=== PATIENT | female | born 1970 | race Caucasian/White ===

== ENCOUNTER 2025-03-07 12:36 | Outpatient (AMB) | payer MEDICAID, SELFPAY ==
[2025-03-07 12:49] VITALS: BP 114/68; PULSE 69; RESP 19; TEMP 36.4; O2SAT 98; BMI 32.7
--- NOTE | 2025-03-07 12:49 | ORTHONT_ITS ---
Vital signs 03/07/25 12:49 Height 1.5 m Height Method Stated Weight 73.539 kg Weight Measurement Method Standing Scale BMI 32.7 BP 114/68 Blood Pressure Source Automatic Cuff Blood Pressure Location Left Upper Arm Position Sitting Respiration 19 Pulse 69 Pulse Source Monitor Temp 97.6 F Temp Source Temporal Artery Scan Pulse Oximetry (%) 98 Oxygen Delivery Method Room Air Med/Allergies Allergies & Medications Allergies No Known Allergies Allergy (Verified 03/07/25 12:50) Medication Reconciliation Unobtainable 03/07/25 [History Confirmed 03/07/25] Exam Exam Patient is in no acute distress and is cooperative with the examination today. Breathing is nonlabored. In no respiratory distress. Patient has no paraspinal tenderness. Spinal deformity cannot be appreciated. The gait of the patient is nonantalgic Bilateral extremities were evaluated and demonstrates sensation intact to light touch. Palpable pedal pulses are present. No significant edema is present. Bilateral knees were examined and the patient has full strength and range of motion.. The left hip was examined. Patient was able to flex to 90 degrees, adduct to 30 degrees, abduct to 40 degrees, internally rotate to 20 degrees, and externally rotate to 20 degrees. Patient has a negative logroll. Stinchfield is negative. The patient is nontender diffusely to touch. The right hip was examined. Patient was able to flex to 90 degrees, adduct to 30 degrees, abduct to 40 degrees, internally rotate to 20 degrees, and externally rotate to 20 degrees. Patient has a negative logroll. The stinchfield is negative. Right knee is tender to palpation medially. Range of motion 0 to 120 degrees. Knee feels stable varus valgus stresses AP translation Patient has an MRI for women's health. It is limited by metal artifact. I do not see anything obviously wrong with the right hip. For the right knee there are meniscal tears as well as arthritis degenerative changes of the right knee Assessment and Plan Problem List (1) Acute pain of right hip: Status: Acute Plan: Patient is a pleasant 54-year-old female with Right hip and knee pain that has been ongoing for quite a while. She had a prior hip replacement 2019. The pain starts in the back and radiates down her knee. The MRI demonstrates a large bucket-handle tear of the lateral meniscus with a flipped meniscal fragment. I would like to see x-rays to see the severity of the arthritis. We discussed we could try cortisone injections if needed. We will see her back after her x-rays are done. I discussed with her that the treatment would likely depend on the severity of the arthritis.. 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 Level 3 (5640-0141) [place] Intake Visit Data Collection New Patient or Established: New Patient (never been to [facility]) Reason for Visit:: RIGHT HIP/KNEE PAIN [employer] Required: No Do You Feel Safe at Home: Yes Questionairres Past Medical History Past Medical History Have you ever been diagnosed with any of the following: Cardiology Problems Hypertension: No Respiratory Problems Smoking: No Smoking Exposure: No Surgical History Bariatric Surgery: Yes Cholecystectomy: Yes Total Hip Replacement: Yes (RIGHT) Subjective Visit Visit for: new patient, hip and knee Immunization / Flu Flu Vaccine in the Last 12 Months: No Flu Vaccine Exclusion Criteria: No Exclusion Criteria History of Present Illness Chief complaint: RIGHT HIP/KNEE PAIN Patient is a pleasant 54-year-old female with pain that starts from her back and radiates all the way down her leg. There is also hip and knee pain. She had a hip replacement done in 2019. The pain is described as a burning sensation. She reports the knees have been bad for quite a while. Personal History Red flag PMH: none BMI Counceling provided: Yes Pain Pain location: inside (medial), outside (lateral), anterior and posterior Pain quality: sharp, aching and burning Associated signs & symptoms: stiffness Ambulatory data Ambulatory device: other (specify) (CRUTCH) Treatments Improvement with previous injections: No Improvement with PT: No Improvement with NSAIDS: yes Review of Systems Review of Systems: All systems negative unless otherwise noted in HPI.
--- NOTE | 2025-03-07 12:55 | XR_ITS ---
Examination: Right knee 4 views Technique one AP oblique lateral axial right knee 4 views Exam date and time: March 07, 2025 1306 hours Indications knee pain years. FINDINGS: Moderate to advanced tricompartment osteoarthritis, most severe narrowing lateral joint space No patellar dislocation No fracture IMPRESSION: Moderate to advanced tricompartment osteoarthritis
--- NOTE | 2025-03-07 12:55 | XR_ITS ---
Examination:Right hip AP, lateral, AP pelvis 3 views Technique: Hip AP lateral, AP pelvis, 3 views Exam date and time:March 07, 2025 1304 hours INDICATIONS: History right hip replacement FINDINGS: Total right hip arthroplasty. Satisfactory alignment. No fracture. No loosening of the prosthetic components Left hip intact IMPRESSION: Total right hip arthroplasty with satisfactory alignment.
== END 2025-03-07 12:59 | disposition home or self-care (01) ==
LOC: HODSRG 12:36
PROVIDERS: Supervising Provider Orthopaedic Surgery Adult Reconstructive Orthopaedic Surgery; Visit Provider Orthopaedic Surgery Adult Reconstructive Orthopaedic Surgery
DX: M25.551 Pain in right hip (principal); M25.561 Pain in right knee
CPT/HCPCS: 73502; 73564; 99203; G0463

== ENCOUNTER 2025-03-15 13:32 | Outpatient (AMB) | payer MEDICAID, SELFPAY ==
--- NOTE | 2025-03-15 13:49 | PD.ORTHCLVIS ---
Vital signs 03/15/25 13:50 Height 1.5 m Height Method Stated Weight 73.057 kg Weight Measurement Method Standing Scale BMI 32.4 BP 128/69 Blood Pressure Source Automatic Cuff Blood Pressure Location Left Upper Arm Position Sitting Respiration 19 Pulse 63 Pulse Source Monitor Temp 97.3 F Temp Source Temporal Artery Scan Pulse Oximetry (%) 97 Oxygen Delivery Method Room Air Med/Allergies Allergies & Medications Allergies No Known Allergies Allergy (Verified 03/15/25 13:50) Medication Reconciliation dexamethasone 4 mg tablet 4 mg PO QDAY 03/15/25 [History Confirmed 03/15/25] Exam Exam Patient is in no acute distress and is cooperative with the examination today. Breathing is nonlabored. In no respiratory distress. Patient has no paraspinal tenderness. Spinal deformity cannot be appreciated. The gait of the patient is nonantalgic Bilateral extremities were evaluated and demonstrates sensation intact to light touch. Palpable pedal pulses are present. No significant edema is present. Bilateral knees were examined and the patient has full strength and range of motion.. The left hip was examined. Patient was able to flex to 90 degrees, adduct to 30 degrees, abduct to 40 degrees, internally rotate to 20 degrees, and externally rotate to 20 degrees. Patient has a negative logroll. Stinchfield is negative. The patient is nontender diffusely to touch. The right hip was examined. Patient was able to flex to 90 degrees, adduct to 30 degrees, abduct to 40 degrees, internally rotate to 20 degrees, and externally rotate to 20 degrees. Patient has a negative logroll. The stinchfield is negative. Right knee is tender to palpation medially. Range of motion 0 to 120 degrees. Knee feels stable varus valgus stresses AP translation Patient has an MRI for women's health. It is limited by metal artifact. I do not see anything obviously wrong with the right hip. For the right knee there are meniscal tears as well as arthritis degenerative changes of the right knee X-rays of the right knee demonstrate severe joint space narrowing laterally with [id number] arthritis Assessment and Plan Problem List (1) Acute pain of right hip: Status: Acute Plan: Patient is a pleasant 54-year-old female with Right hip and knee pain that has been ongoing for quite a while. She had a prior hip replacement 2019. The pain starts in the back and radiates down her knee. The MRI demonstrates a large bucket-handle tear of the lateral meniscus with a flipped meniscal fragment. X-rays demonstrate severe lateral joint space narrowing and arthritis Recommend knee cortisone injection as patient would like to proceed with conservative treatment at this time. The risks and benefits of the procedure were reviewed with the patient and patient gave verbal consent to continue with the procedure. Procedure: performed by Dr. Burns Using sterile technique the Right knee was thoroughly prepped with alcohol, and approximately 1 cc of Kenalog 40 mg/mL and 4 cc of 1% lidocaine was injected without resistance into the medial tibial femoral joint space. The patient tolerated the procedure. (2) Pain in right knee: Status: Acute Office Procedures GNS Level of Care Nursing/Assessment Patient Status: Established Patient Nursing Assessment/Reassesment: Medication Reconciliation, Update PMH in EMR and Vital Signs Coordination of Care: Complex Care and Chronic Disease 1-5, Education Complex Pt/Fam, Consent,records obtained, informed consent, Results/Orders obtained and Staff clarify orders Special Needs: Language special needs Established Patient Charge Established Patient Point Assignment: 95 Established Patient Point Charge: EP Level 3 (80-115) [place] Intake Visit Data Collection New Patient or Established: Established Patient (seen at [facility] within 3 years) Reason for Visit:: XRAY RESULTS/RIGHT HIP PAIN Seen by Clinical Staff ONLY (RN/MA): No PCP or OBGYN visit in last 3 months: Yes Hx Now: No Do You Feel Safe at Home: Yes Authorities Contacted: N/A Questionairres Past Medical History Past Medical History Have you ever been diagnosed with any of the following: Cardiology Problems Hypertension: No Respiratory Problems Smoking: No Smoking Exposure: No Surgical History Bariatric Surgery: Yes Cholecystectomy: Yes Total Hip Replacement: Yes (RIGHT) Subjective Visit Visit for: follow up visit, hip and x-rays Immunization / Flu Flu Vaccine in the Last 12 Months: No Flu Vaccine Exclusion Criteria: No Exclusion Criteria History of Present Illness Chief complaint: RIGHT HIP/KNEE PAIN Patient is a pleasant 54-year-old female with pain that starts from her back and radiates all the way down her leg. There is also hip and knee pain. She had a hip replacement done in 2019. The pain is described as a burning sensation. She reports the knees have been bad for quite a while. She reports the knee hurts more than the hip. She is post to get back and cervical spine surgery soon. She wants cortisone injection to the right knee today Personal History Red flag PMH: none BMI Counceling provided: Yes Pain Pain level (0-10): 0 Pain location: inside (medial), outside (lateral), anterior and posterior Pain quality: sharp, aching and burning Associated signs & symptoms: stiffness Ambulatory data Ambulatory device: none Treatments Improvement with previous injections: No Improvement with PT: No Improvement with NSAIDS: no Review of Systems Review of Systems: All systems negative unless otherwise noted in HPI.
[2025-03-15 13:50] VITALS: BP 128/69; PULSE 63; RESP 19; TEMP 36.3; O2SAT 97; BMI 32.4
== END 2025-03-15 14:01 | disposition home or self-care (01) ==
LOC: HODSRG 13:32
PROVIDERS: Supervising Provider Orthopaedic Surgery Adult Reconstructive Orthopaedic Surgery; Visit Provider Orthopaedic Surgery Adult Reconstructive Orthopaedic Surgery
DX: M17.11 Unilateral primary osteoarthritis, right knee (principal); S83.251A Bucket-handle tear of lateral meniscus, current injury, right knee, initial encounter; M25.551 Pain in right hip; X58.XXXA Exposure to other specified factors, initial encounter; Z90.49 Acquired absence of other specified parts of digestive tract; Z96.649 Presence of unspecified artificial hip joint
CPT/HCPCS: 20610; 99213; J3301; J3490; G0463

== ENCOUNTER 2025-06-14 13:13 | Outpatient (AMB) | payer MEDICAID, SELFPAY ==
--- NOTE | 2025-06-14 13:21 | ORTHONT_ITS ---
Vital signs 06/14/25 13:24 Height 1.5 m Height Method Stated Weight 72.263 kg Weight Measurement Method Standing Scale BMI 32.1 BP 106/75 Blood Pressure Source Automatic Cuff Blood Pressure Location Left Upper Arm Position Sitting Respiration 16 Pulse 66 Pulse Source Monitor Temp 98.4 F Temp Source Temporal Artery Scan Pulse Oximetry (%) 99 Oxygen Delivery Method Room Air Med/Allergies Allergies & Medications Allergies No Known Allergies Allergy (Verified 06/14/25 13:25) Medication Reconciliation dexamethasone 4 mg tablet 4 mg PO QDAY 03/15/25 [History Confirmed 06/14/25] Exam Exam Patient is in no acute distress and is cooperative with the examination today. Breathing is nonlabored. In no respiratory distress. Patient has no paraspinal tenderness. Spinal deformity cannot be appreciated. The gait of the patient is nonantalgic Bilateral extremities were evaluated and demonstrates sensation intact to light touch. Palpable pedal pulses are present. No significant edema is present. Bilateral knees were examined and the patient has full strength and range of motion.. The left hip was examined. Patient was able to flex to 90 degrees, adduct to 30 degrees, abduct to 40 degrees, internally rotate to 20 degrees, and externally rotate to 20 degrees. Patient has a negative logroll. Stinchfield is negative. The patient is nontender diffusely to touch. The right hip was examined. Patient was able to flex to 90 degrees, adduct to 30 degrees, abduct to 40 degrees, internally rotate to 20 degrees, and externally rotate to 20 degrees. Patient has a negative logroll. The stinchfield is negative. Right knee is tender to palpation medially. Range of motion 0 to 120 degrees. Knee feels stable varus valgus stresses AP translation Patient has an MRI for women's health. It is limited by metal artifact. I do not see anything obviously wrong with the right hip. For the right knee there are meniscal tears as well as arthritis degenerative changes of the right knee X-rays of the right knee demonstrate severe joint space narrowing laterally with [id number] arthritis Assessment and Plan Problem List (1) Acute pain of right hip: Status: Acute Plan: Patient is a pleasant 54-year-old female with Right hip and knee pain that has been ongoing for quite a while. She had a prior hip replacement 2019. The pain starts in the back and radiates down her knee. The MRI demonstrates a large bucket-handle tear of the lateral meniscus with a flipped meniscal fragment. X- rays demonstrate severe lateral joint space narrowing and arthritis She is doing well currently we recommend continued home exercises. We can give her a cortisone injection should the pain get worse (2) Pain in right knee: Status: Acute Office Procedures GNS Level of Care Nursing/Assessment Patient Status: Established Patient Nursing Assessment/Reassesment: Medication Reconciliation, Update PMH in EMR and Vital Signs Coordination of Care: Complex Care and Chronic Disease 1-5, Education Complex Pt/Fam, Consent,records obtained, informed consent, Results/Orders obtained and Staff clarify orders Established Patient Charge Established Patient Point Assignment: 95 Established Patient Point Charge: EP Level 3 (80-115) [place] Intake Visit Data Collection New Patient or Established: Established Patient (seen at [facility] within 3 years) Reason for Visit:: 3 MONTH F/U KNEE INJECTION Seen by Clinical Staff ONLY (RN/MA): No Horticultural Technical Officer Required: No PCP or OBGYN visit in last 3 months: Yes Hx Now: No Do You Feel Safe at Home: Yes Authorities Contacted: N/A Questionairres Past Medical History Past Medical History Have you ever been diagnosed with any of the following: Neurological Problems Cerebrovascular Accident (CVA): No Transient Ischemic Attacks (TIA): No Dementia: No Alzheimer's Disease: No Parkinson's Disease: No Brain Tumor: No Meningitis: No Seizures: No Epilepsy: No Multiple Sclerosis: No Cerebral Palsy: No Amyotrophic Lateral Sclerosis (ALS/Jacinda Gehrig's): No Guillain-Castle[place] Syndrome: No Spina Bifida: No Paralysis: No Peripheral Neuropathy: No Crews's Palsy: No Subdural Hematoma: No Migraine: No Head Trauma: No Spinal Cord Injury: No Traumatic Brain Injury: No Cardiology Problems Myocardial Infarction: No Cardiac Arrhythmia: No Atrial Fibrillation: No Angina: No Heart Murmur: No Coronary Artery Disease: No Atherosclerotic Heart Disease: No Peripheral Vascular Disease: No Hypercholesterolemia: No Aneurysm: No Congestive Heart Failure: No Congenital Heart Disease: No Valvular Heart Disease: No Rheumatic Fever: No Cardiomyopathy: No Edema: No Pericarditis: No Cellulitis: No Deep Vein Thrombosis: No Hypertension: No Hypotension: No Varicose Veins: No Respiratory Problems Chronic Obstructive Pulmonary Disease (COPD): No Asthma: No Bronchitis: No Emphysema: No Pneumonia: No Pulmonary Fibrosis: No Tuberculosis: No Pulmonary Embolism: No Pulmonary Edema: No Sleep Apnea: No CPAP Dependent: No Respiratory Aspiration: No Dyspnea: No Orthopnea: No Hx Cough: No Cough: No Wheezing: No Chest Deformities: No Smoking: No Smoking Cessation Counseling: No Smoking Exposure: No Tobacco Use: No Clubbing: No Exposure to Respiratory Irritants: No Intubation: No Stomache/Intestinal Problems Liver Cancer: No Hepatitis: No Cirrhosis: No Pancreatic Cancer: No Pancreatitis: No Celiac Disease: No Gall Bladder Disease: No Gastrointestinal Bleed: No Esophageal Varices: No Patterson's Esophagus: No Colitis: No Ulcerative Colitis: No Diverticulitis: No Diverticulosis: No Ulcer: No Colorectal Cancer: No Irritable Bowel: No Crohn's Disease: No Obstructive Bowel: No Hiatal Hernia: No Hemorrhoids: No Gastroesophageal Reflux Disease: No Polyps: No Obesity: No Genital/Urinary Problems Chronic Kidney Disease: No Renal Disease: No Kidney Stones: No Polycystic Kidney Disease: No Neurogenic Bladder: No Inguinal Hernia: No Dialysis: No Reproductive Problems Breast Cancer: No Endometriosis: No Fibroids: No Genital Herpes: No Gonorrhea: No Pelvic Inflammatory Disease: No Polycystic Ovarian Syndrome: No Previous Pregnancies: No Syphilis: No Uterine Prolapse: No Musculoskeletal Problems Muscular Dystrophy: No Myasthenia Gravis: No Marfan's Syndrome: No Bone Cancer: No Arthritis: No Rheumatoid Arthritis: No Osteoporosis: No Degenerative Disk Disease: No Gout: No Scoliosis: No Carpal Tunnel Syndrome: No Fibromyalgia: No Fractures: No Degenerative Joint Disease: No Osteomyelitis: No Poliovirus: No Head,Eye,Nose,Throat Problems Cataracts: No Glaucoma: No Blind: No Retinal Detachment: No Macular Degeneration: No Chronic Ear Infections: No Deafness: No Eye Prosthesis: No Endocrine Problems Diabetes Mellitus Type 1: No Diabetes Mellitus Type 2: No Hypoglycemia: No Michael's Syndrome: No Jensen's Disease: No Hyperthyroidism: No Hypothyroidism: No Thyroid Cancer: No Parathyroid Disease: No Pituitary Disease: No Systemic Lupus Erythematosus: No Syndrome of Inappropriate Antidiuretic Hormone: No Adrenal Disease: No Graves' Disease: No Blood Problems Anemia: No Leukemia: No Hemophilia: No Thalassemia: No Sickle Cell Disease: No Clotting Problems: No Psychologic Problems Schizophrenia: No Recreational Drug Use: No Bipolar Disorder: No Depression: No Anxiety: No Behavior Problems: No Self-Mutilation: No Attention Deficit Disorder: No Attention Deficit Hyperactivity Disorder: No Depression: No Post Traumatic Stress Disorder: No Eating Disorder: No Other Problems Hospitalization: No Autoimmune Disease: No Down Syndrome: No Autism: No Developmental Delay: No Cosmetic Surgery: No Shingles: No Falls: No Blood Transfusions: No Blood Transfusion Reaction: No Anesthesia Reactions: No Organ Transplant: No Chemotherapy: No Radiation Therapy: No Hyperbaric Therapy: No MRSA: No VRSA: No Vancomycin-Resistant Enterococci: No Human Immunodeficiency Virus (HIV): No Chicken Pox: No Measles: No Mumps: No Rubella ([place] Measles): No Pertussis: No Klebsiella Pneumoniae Carbapenemase Producing Bacteria: No Clostridium Difficile: No Hepatitis A: No Hepatitis B: No Hepatitis C: No Communicable Disease: No Cancer: No Cervical Cancer: No Lung Cancer: No Ovarian Cancer: No Surgical History Angioplasty: No Appendectomy: No Bariatric Surgery: Yes Breast Surgery: No Cancer Surgery: No Carotid Endarterectomy: No Cholecystectomy: Yes Colectomy: No Colostomy: No Coronary Artery Bypass Graft: No Valve Replacement: No Herniorrhaphy: No Total Hip Replacement: Yes (RIGHT) Total Knee Replacement: No Hysterectomy: No Pacemaker: No Sinus Surgery: No Splenectomy: No TAHBSO-Total Abdominal Hysterectomy: No Thyroidectomy: No Ureter Stent: No Subjective Visit Visit for: follow up visit and knee Immunization / Flu Flu Vaccine in the Last 12 Months: No Flu Vaccine Exclusion Criteria: No Exclusion Criteria History of Present Illness Chief complaint: 3 MTH F/U KNEE INJECTION Patient is a pleasant 54-year-old female with pain that starts from her back and radiates all the way down her leg. There is also hip and knee pain. She had a hip replacement done in 2019. The pain is described as a burning sensation. She reports the knees have been bad for quite a while. She reports the knee hurts more than the hip. Personal History Red flag PMH: none BMI Counceling provided: Yes Pain Pain level (0-10): 0 Pain location: inside (medial), outside (lateral), anterior and posterior Pain quality: sharp, aching and burning Associated signs & symptoms: weakness Ambulatory data Ambulatory device: none Treatments Number of previous injections: 1 Improvement with previous injections: Yes Improvement with PT: No Improvement with NSAIDS: yes Review of Systems Review of Systems: All systems negative unless otherwise noted in HPI.
[2025-06-14 13:24] VITALS: BP 106/75; PULSE 66; RESP 16; TEMP 36.9; O2SAT 99; BMI 32.1
== END 2025-06-14 13:36 | disposition home or self-care (01) ==
LOC: HODSRG 13:13
PROVIDERS: Supervising Provider Orthopaedic Surgery Adult Reconstructive Orthopaedic Surgery; Visit Provider Orthopaedic Surgery Adult Reconstructive Orthopaedic Surgery
DX: M25.551 Pain in right hip (principal); M25.561 Pain in right knee; S83.200D Bucket-handle tear of unspecified meniscus, current injury, right knee, subsequent encounter; X58.XXXD Exposure to other specified factors, subsequent encounter
CPT/HCPCS: 99213; G0463

== ENCOUNTER 2025-08-10 13:20 | Day surgery (SDC) | payer MEDICAID, SELFPAY ==
[2025-08-09 14:31] VITALS: BMI 31.2
[2025-08-10] VITALS (8 sets, daily range): BP systolic 103–126; BP diastolic 65–82; PULSE 56–72; RESP 14–19; TEMP 36.2–36.8; O2SAT 95–100; BMI 31.8
[2025-08-10] MEDS: RINGERS LACTATED 1000 ML 1,000 ML 20 ML IV (13:52)
[2025-08-10 14:22] LABS: Basophils # (Auto) 0.1 Thou/mm3 (0.0-0.2); Basophils % (Auto) 2 % (0-2.5); Eosinophils # (Auto) 0.2 Thou/mm3 (0.0-0.5); Eosinophils % (Auto) 4 % (0-10); Hematocrit 35.8 % (36.0-46.0); Hemoglobin 12.1 g/dL (12.0-16.0); Immature Granulocytes Auto 0.01 Thou/mm3 (0.00-0.00); Lymphocytes # (Auto) 1.5 Thou/mm3 (1.0-4.8); Lymphocytes % (Auto) 35 % (10-50); Mean Corpuscular HGB Conc 33.8 g/dl (31.0-37.0); Mean Corpuscular Hemoglobin 31.7 pg (25.0-35.0); Mean Corpuscular Volume 94 fL (80-100); Monocytes # (Auto) 0.4 Thou/mm3 (0.0-0.8); Monocytes % (Auto) 8 % (0-12); Neutrophils # (Auto) 2.2 Thou/mm3 (1.8-7.7); Neutrophils % (Auto) 51 % (37-80); Nucleated Red Blood Cell # 0.00 Thou/mm3 (0.00-0.00); Nucleated Red Blood Cell % 0 /100 WBC (0); Platelet Count 227 Thou/mm3 (140-440); RDW Standard Deviation 42.3 fL (36.4-46.3); Red Blood Count 3.82 Miln/mm3 (4.00-5.20); White Blood Count 4.4 Thou/mm3 (3.6-11.0)
--- NOTE | 2025-08-10 17:10 | SUR.PHASEII ---
1719 Patient arrived to recovery resting comfortably in [facility], on oxygen via nasal cannula 3L, breathing unlabored, vital signs stable, denies pain and nausea, report received from Dr. Garcia and Annamaria COHEN
--- NOTE | 2025-08-10 18:25 | SUR.PHASEII ---
1825 Patient meets discharge criteria from recovery, awake and alert, breathing unlabored, vital signs stable, denies pain, drinking fluids, tolerating well, denies nausea, able to dress herself into her clothing, discharge instructions given to patient and patients son, son signed discharge instructions, patient given all her belongings prior to discharge, transported via wheelchair and left in a private vehicle.
== END 2025-08-10 18:25 | disposition home or self-care (01) ==
PROVIDERS: Anesthesiology; Referring Provider Internal Medicine Gastroenterology; Visit Provider Internal Medicine Gastroenterology
PROC: (CPT 43239; principal; 2025-08-10 14:30)
DX: K22.2 Esophageal obstruction (principal); K76.9 Liver disease, unspecified; K22.89 Other specified disease of esophagus; E66.9 Obesity, unspecified; Z98.84 Bariatric surgery status; K76.0 Fatty (change of) liver, not elsewhere classified
CPT/HCPCS: 43249; 43239; 36415; 85025; A4649; C1726; J7120